=== PATIENT | female | born 1960 | race Caucasian/White ===

== ENCOUNTER 2020-03-22 13:22 | Outpatient (REF) | payer MEDICAID, SELFPAY ==
[2020-03-22 16:32] LABS: Albumin Level 4.7 g/dL (3.5-5.0); Calcium 9.7 mg/dL (8.4-10.2)
[2020-03-22 17:00] LABS: Free T4 (Free Thyroxine) 1.14 ng/dL (0.71-1.85); Vitamin D 25-OH Total 39.1 ng/mL (>30)
[2020-03-23 13:21] LABS: Calcium (PTHI) 9.7 mg/dL (8.6-10.4); PTHI 35 pg/mL (14-64)
[2020-03-23 22:21] LABS: Prot Elec - Albumin 4.5 g/dL (3.8-4.8); Prot Elec - Alpha1 0.3 g/dL (0.2-0.3); Prot Elec - Alpha2 0.8 g/dL (0.5-0.9); Prot Elec - Beta 1 0.4 g/dL (0.4-0.6); Prot Elec - Beta 2 0.4 g/dL (0.2-0.5); Prot Elec - Gamma 0.8 g/dL (0.8-1.7); Prot Elec - Total Protein 7.2 g/dL (6.1-8.1)
[2020-03-27 09:21] LABS: VITAMIN D (1,25 OH) D3 32 pg/mL; Vit D (1,25-Dihydroxy) Total 32 pg/mL (18-72); Vitamin D (1,25 OH) D2 <8 pg/mL
[2020-03-27 12:32] LABS: Alkaline Phosphatase Bone 21.3 mcg/L (5.6-29.0)
== END 2020-03-22 13:23 | disposition home or self-care (01) ==
LOC: HO.LAB 13:22
PROVIDERS: PCP Internal Medicine; Referring Provider Internal Medicine; Visit Provider Internal Medicine Endocrinology, Diabetes & Metabolism
DX: M81.0 Age-related osteoporosis without current pathological fracture (principal)
CPT/HCPCS: 36415; 82040; 82306; 82310; 82652; 83970; 84075; 84155; 84165; 84439; 84443; 99203; 99204

== ENCOUNTER 2020-03-24 08:00 | Outpatient (REF) | payer MEDICAID, SELFPAY ==
[2020-03-24 10:50] LABS: Total Volume 24 Hour Urine 2500 mL
[2020-03-24 11:26] LABS: Creatinine, 24Hr Urine 1.2 G/Day (1.0-2.0); Creatinine, mg/dL 49.62; Protein 24 Hr Urine < 175 mg/Day (<150); Protein mg/dL < 7 mg/dL
[2020-03-25 19:46] LABS: Calcium, 24 Hr Urine 50 mg/24 h; Calcium/Creatinine Ratio 38 mg/g creat (30-275); Creatinine 24Hr Urine 1.33 g/24 h (0.50-2.15)
[2020-03-27 11:32] LABS: PEU24-Alpha 1 Globulin 0; PEU24-Alpha 2 Globulin 0; PEU24-Beta Globulin 0; PEU24-Gamma Globulin 0
[2020-03-27 11:33] LABS: Creatinine, 24Hr Urine 1.35
[2020-03-27 11:35] LABS: Total Protein 24Hr Urine 100; Total Protein/Creat Ratio 24h 74
[2020-03-30 10:27] LABS: N-Telopeptide 35 (see note); NTXCreaRU 335 mg/dL (20-275)
== END 2020-03-24 08:01 | disposition home or self-care (01) ==
LOC: HO.LNP 08:00
PROVIDERS: Visit Provider Internal Medicine Endocrinology, Diabetes & Metabolism
DX: M81.0 Age-related osteoporosis without current pathological fracture (principal); Z79.899 Other long term (current) drug therapy
CPT/HCPCS: 82340; 82523; 82570; 84156; 84166

== ENCOUNTER → 2020-06-21 07:38 | Outpatient (BNVA) | payer MEDICAID, SELFPAY | PROVIDERS: PCP Internal Medicine; Visit Provider Internal Medicine Endocrinology, Diabetes & Metabolism ==

== ENCOUNTER 2020-07-07 07:30 | Outpatient (REF) | payer MEDICAID, SELFPAY ==
[2020-07-07 09:02] LABS: Alanine Aminotransferase 25 U/L (0-31); Albumin Level 4.5 g/dL (3.5-5.0); Alkaline Phosphatase 107 U/L (39-117); Anion Gap 15 (12-20); Aspartate Amino Transferase 19 U/L (5-31); Bilirubin Total 0.5 mg/dL (0.0-1.0); Blood Urea Nitrogen 11 mg/dL (9-16); Calcium 9.3 mg/dL (8.4-10.2); Carbon Dioxide 27 mmol/L (22-29); Chloride 103 mmol/L (96-108); Estimated Glomerular Filt Rate 57; Glucose Fasting 98 mg/dL (60-99); Potassium 3.5 mmol/L (3.3-5.1); Sodium 141 mmol/L (135-145)
[2020-07-07 09:24] LABS: Vitamin D 25-OH Total 35.6 ng/mL (>30)
[2020-07-12 14:47] LABS: N-Telopeptide 25 (see note); NTXCreaRU 414 mg/dL (20-275)
== END 2020-07-07 07:31 | disposition home or self-care (01) ==
LOC: HO.LAB 07:30
PROVIDERS: Visit Provider Internal Medicine Endocrinology, Diabetes & Metabolism
DX: M81.0 Age-related osteoporosis without current pathological fracture (principal)
CPT/HCPCS: 36415; 80053; 82306; 82523

== ENCOUNTER 2020-08-09 08:05 | Outpatient (REF) | payer MEDICAID, SELFPAY ==
--- NOTE | ~2020-08-09 | MM_ITS ---
EXAMINATION: MM SCREENING DIGITAL BREAST TOMOSYNTHESIS, BILATERAL CLINICAL INFORMATION: Screening. Asymptomatic. The lifetime risk of breast cancer based on the Tyrer-Cuzick Model is 6.2%. COMPARISON: Mammography: May 05, 2019 and studies dating back to December 16, 2007 TECHNIQUE: Digital breast tomosynthesis is performed in both the craniocaudal and mediolateral oblique views along with computer-aided detection (CAD). Synthesized 2D images are generated from the tomosynthesis. Bilateral exaggerated craniocaudal views performed. FINDINGS: There are scattered areas of fibroglandular density (ACR BI-RADS breast composition Category b). There are no significant masses, abnormal calcifications, or other abnormalities. MM/MM tomosynthesis screening BI IMPRESSION: There are no significant changes from prior study. ASSESSMENT: BI-RADS 1: Negative RECOMMENDATION: Routine annual mammography screening. This patient's information was entered into a reminder system with a target due date for their next mammogram.
== END 2020-08-09 08:06 | disposition home or self-care (01) ==
LOC: HO.MAMMO 08:05
PROVIDERS: PCP Internal Medicine; Visit Provider Internal Medicine
DX: Z12.31 Encounter for screening mammogram for malignant neoplasm of breast (principal)
CPT/HCPCS: 77063; 77067

== ENCOUNTER 2020-12-20 07:10 | Outpatient (REF) | payer MEDICAID, SELFPAY ==
[2020-12-20 09:13] LABS: Albumin Level 4.5 g/dL (3.5-5.0); Calcium 9.7 mg/dL (8.4-10.2)
[2020-12-20 09:46] LABS: Vitamin D 25-OH Total 35.5 ng/mL (>30)
[2020-12-28 05:47] LABS: N-Telopeptide 10 (see note); NTXCreaRU 96 mg/dL (20-275)
== END 2020-12-20 07:11 | disposition home or self-care (01) ==
LOC: HO.LAB 07:10
PROVIDERS: PCP Internal Medicine; Visit Provider Internal Medicine Endocrinology, Diabetes & Metabolism
DX: M81.0 Age-related osteoporosis without current pathological fracture (principal)
CPT/HCPCS: 36415; 82040; 82306; 82310; 82523; 99212

== ENCOUNTER 2021-02-12 15:18 | Outpatient (REF) | payer MEDICAID, SELFPAY ==
--- NOTE | ~2021-02-12 | XR_ITS ---
EXAMINATION: , AP pelvis CLINICAL INFORMATION: Pain COMPARISON: None available at the time of this dictation. TECHNIQUE: Single frontal view of the pelvis. FINDINGS: There is no evidence of acute fracture or dislocation. There are mild degenerative arthritic changes of the hip evident by sclerotic changes of the acetabular roof and narrowing of the joint space. Mild degenerative changes of the symphysis pubis. Mild degenerative changes of the SI joints. Adjacent pubic rami are intact. Surrounding soft tissues are unremarkable. There are pelvic phleboliths. XR/XR pelvis 1-2V IMPRESSION: Mild degenerative arthritis. .
== END 2021-02-12 15:19 | disposition home or self-care (01) ==
LOC: HO.XRAY 15:18
PROVIDERS: PCP Internal Medicine; Visit Provider Internal Medicine
DX: R10.2 Pelvic and perineal pain (principal)
CPT/HCPCS: 72170

== ENCOUNTER 2021-03-11 14:11 | Outpatient (REF) | payer MEDICAID, SELFPAY ==
--- NOTE | ~2021-03-11 | US_ITS ---
EXAMINATION: US PELVIS CLINICAL INFORMATION: Pain COMPARISON: None TECHNIQUE: Ultrasound of the pelvis is performed using both transabdominal and transvaginal transducers along with Doppler. Transvaginal imaging is performed due to inadequate visualization transabdominally. FINDINGS: The uterus has been removed. The ovaries are normal-appearing. The right ovary measures 1.7 x 1.1 x 1.7 cm and the left ovary measures 1.4 x 1 x 1.7 cm. There is no fluid in the pelvis. US/US pelvic and transvaginal IMPRESSION: Post hysterectomy. Normal-appearing ovaries. No fluid in the pelvis.
== END 2021-03-11 14:12 | disposition home or self-care (01) ==
LOC: HO.HMGCX 14:11
PROVIDERS: PCP Internal Medicine; Visit Provider Internal Medicine
DX: R10.2 Pelvic and perineal pain (principal)
CPT/HCPCS: 76830; 76856

== ENCOUNTER 2021-08-17 08:55 | Outpatient (REF) | payer MEDICAID, SELFPAY ==
--- NOTE | ~2021-08-17 | MM_ITS ---
EXAMINATION: MM SCREENING DIGITAL BREAST TOMOSYNTHESIS, BILATERAL CLINICAL INFORMATION: Screening. Asymptomatic. The lifetime risk of breast cancer based on the Tyrer-Cuzick Model is 4.7%. COMPARISON: Mammography: August 09, 2020 and studies dating back to March 16, 2010 TECHNIQUE: Digital breast tomosynthesis is performed in both the craniocaudal and mediolateral oblique views along with computer-aided detection (CAD). Synthesized 2D images are generated from the tomosynthesis. FINDINGS: There are scattered areas of fibroglandular density (ACR BI-RADS breast composition Category b). There are no significant masses, abnormal calcifications, or other abnormalities. MM/MM tomosynthesis screening BI IMPRESSION: There are no significant changes from prior study. ASSESSMENT: BI-RADS 1: Negative RECOMMENDATION: Routine annual mammography screening. This patient's information was entered into a reminder system with a target due date for their next mammogram.
== END 2021-08-17 08:56 | disposition home or self-care (01) ==
LOC: HO.MAMMO 08:55
PROVIDERS: PCP Internal Medicine; Visit Provider Internal Medicine
DX: Z12.31 Encounter for screening mammogram for malignant neoplasm of breast (principal)
CPT/HCPCS: 77063; 77067

== ENCOUNTER 2021-12-19 10:11 | Outpatient (REF) | payer MEDICAID, SELFPAY ==
--- NOTE | ~2021-12-19 | MM_ITS ---
EXAMINATION: BONE DENSITOMETRY CLINICAL INDICATION: Age-related osteoporosis without current pathological fracture. COMPARISON: Baseline BD dated 12/08/2019. TECHNIQUE: Using a [employer] DXA System (software version: 13.1) manufactured by [employer], dual-energy x-ray absorptiometry was performed of the lumbar spine and left hip. The images are of good technical quality. Summary results are attached. FINDINGS: AP SPINE L1-L4: Current: BMD 0.947 g/cm2, Z-score -0.8, T-score -1.9, osteopenia, 9.7% increase from baseline (<5% change is not significant). Baseline: BMD 0.863 g/cm2. LEFT FEMUR, NECK: Current: BMD 0.678 g/cm2, Z-score -1.4, T-score -2.6, osteoporosis. Baseline: BMD 0.781 g/cm2. LEFT FEMUR, TOTAL: Current: BMD 0.702 g/cm2, Z-score -1.5, T-score -2.4, osteopenia, 14.0% decrease from baseline (<5% change is not significant). Baseline: BMD 0.816 g/cm2. IDENTIFIED RISK FACTORS: Osteoporosis. Hysterectomy. Menopause. HISTORY OF FRACTURE: None listed. MEDICATIONS: Calcium supplement and/or multivitamin. Vitamin D. Bisphosphonates. MM/XR DEXA axial skeleton IMPRESSION: 1. DIAGNOSIS: Osteoporosis based on the lowest T-score value of -2.6 in the femoral neck applying World Health Organization criteria. 2. 10-YEAR FRACTURE RISK PREDICTION, FRAX: Major osteoporotic fracture (clinical spine, forearm, hip or shoulder) 7.1%. Hip fracture 1.4%. 3. Treatment Recommendations: NOF guidelines recommend consideration for treatment in postmenopausal women and men age 50 and older presenting with the following: -A hip or vertebral (clinical or morphometric) fracture. -T-score less than or equal to -2.5 at the femoral neck or spine after appropriate evaluation to exclude secondary causes. -Low bone mass at the hip or spine and a 10-year fracture probability by FRAX of greater than or equal to 3% for hip fracture or greater than or equal to 20% for major osteoporotic fracture based on the [place] adapted WHO algorithm. 4. Other Recommendations: All treatment decisions require clinical judgment and consideration of individual patient factors, including patient preferences, comorbidities, previous drug use, risk factors not captured in the FRAX model (e.g. frailty, falls, vitamin D deficiency, increased bone turnover, interval significant decline in bone density) and possible under or overestimation of fracture risk by FRAX. Additional medical evaluation for secondary cause of low bone mineral density may be appropriate. FUTURE SCAN RECOMMENDATION: People with diagnosed cases of osteoporosis or at high risk for fracture should have regular bone mineral density tests. For patients eligible for Medicare, routine testing is allowed once every 2 years. The testing frequency can be increased to one year for patients who have rapidly progressing disease, those who are receiving or discontinuing medical therapy to restore bone mass, or have additional risk factors.
== END 2021-12-19 10:12 | disposition home or self-care (01) ==
LOC: HO.MAMMO 10:11
PROVIDERS: PCP Internal Medicine; Visit Provider Internal Medicine Endocrinology, Diabetes & Metabolism
DX: Z13.820 Encounter for screening for osteoporosis (principal); M81.0 Age-related osteoporosis without current pathological fracture; Z78.0 Asymptomatic menopausal state
CPT/HCPCS: 77080

== ENCOUNTER → 2021-12-24 07:37 | Outpatient (BNVA) | payer MEDICAID, SELFPAY | PROVIDERS: PCP Internal Medicine; Visit Provider Internal Medicine Endocrinology, Diabetes & Metabolism | DX: M81.0 Age-related osteoporosis without current pathological fracture (principal) | CPT/HCPCS: 99212 ==

== ENCOUNTER 2022-06-14 07:45 | Outpatient (REF) | payer MEDICAID, SELFPAY ==
[2022-06-20 04:54] LABS: N-Telopeptide 39 (see note); NTXCreaRU 218 mg/dL (20-275)
== END 2022-06-14 07:46 | disposition home or self-care (01) ==
LOC: HO.HMGCLDS 07:45
PROVIDERS: PCP Internal Medicine; Visit Provider Internal Medicine Endocrinology, Diabetes & Metabolism
DX: M81.0 Age-related osteoporosis without current pathological fracture (principal)
CPT/HCPCS: 82523

== ENCOUNTER → 2022-06-26 07:45 | Outpatient (BNVA) | payer MEDICAID, SELFPAY | PROVIDERS: PCP Internal Medicine; Visit Provider Internal Medicine Endocrinology, Diabetes & Metabolism | DX: M81.0 Age-related osteoporosis without current pathological fracture (principal) | CPT/HCPCS: 99212 ==

== ENCOUNTER 2022-08-30 08:53 | Outpatient (REF) | payer MEDICAID, SELFPAY ==
--- NOTE | ~2022-08-30 | MM_ITS ---
EXAMINATION: MM SCREENING DIGITAL BREAST TOMOSYNTHESIS, BILATERAL CLINICAL INFORMATION: Screening. Asymptomatic. The lifetime risk of breast cancer based on the Tyrer-Cuzick Model is 4%. COMPARISON: Mammography: 08/17/2021, 08/09/2020, 05/05/2019 TECHNIQUE: Digital breast tomosynthesis is performed in both the craniocaudal and mediolateral oblique views along with computer-aided detection (CAD). Synthesized 2D images are generated from the tomosynthesis. FINDINGS: There are scattered areas of fibroglandular density (ACR BI-RADS breast composition Category b). There are no significant masses, abnormal calcifications, or other abnormalities. Parenchymal pattern is similar to prior studies. There is no developing density or architectural abnormality. The axilla and skin contours are unremarkable. No significant changes. MM/MM tomosynthesis screening BI IMPRESSION: No mammographic evidence of malignancy. ASSESSMENT: BI-RADS 1: Negative RECOMMENDATION: Routine annual mammography screening. This patient's information was entered into a reminder system with a target due date for their next mammogram.
== END 2022-08-30 08:54 | disposition home or self-care (01) ==
LOC: HO.MAMMO 08:53
PROVIDERS: Visit Provider Internal Medicine
DX: Z12.31 Encounter for screening mammogram for malignant neoplasm of breast (principal)
CPT/HCPCS: 77063; 77067

== ENCOUNTER 2022-10-09 11:50 | Outpatient (REF) | payer MEDICAID, SELFPAY ==
--- NOTE | ~2022-10-09 | XR_ITS ---
EXAMINATION: XR KNEE, LEFT CLINICAL INFORMATION: Pain. COMPARISON: None available. TECHNIQUE: Four views of the left knee. FINDINGS: No acute compression deformity or subluxation. Mild joint space narrowing of the medial compartment. No erosions or chondrocalcinosis. No significant soft tissue abnormality. XR/XR knee LT 3V IMPRESSION: No acute fracture or malalignment. Mild degenerative osteoarthritis of the medial compartment.
== END 2022-10-09 11:51 | disposition home or self-care (01) ==
LOC: HO.HHCX 11:50
PROVIDERS: Visit Provider Family Medicine
DX: M25.562 Pain in left knee (principal)
CPT/HCPCS: 73562

== ENCOUNTER 2022-11-20 06:24 | Outpatient (REF) | payer MEDICAID, SELFPAY ==
--- NOTE | ~2022-11-20 | XR_ITS ---
EXAMINATION: XR KNEE AP STANDING CLINICAL INFORMATION: Right knee pain. COMPARISON: Left knee radiographs dated 10/09/2022. TECHNIQUE: AP bilateral standing view of the knees was obtained. FINDINGS: Mild medial compartment joint space narrowing with tiny marginal osteophytes at the right and left knees. No osseous erosion. No fracture or dislocation. No abnormal soft tissue calcification. XR/XR knee standing BI IMPRESSION: Mild medial compartment osteoarthritis at the right and left knees.
== END 2022-11-20 06:25 | disposition home or self-care (01) ==
LOC: HO.HOSX 06:24
PROVIDERS: Visit Provider Physician Assistant
DX: M17.12 Unilateral primary osteoarthritis, left knee (principal); M25.561 Pain in right knee
CPT/HCPCS: 73565; 99202

== ENCOUNTER 2023-01-16 08:00 | Outpatient (RCR) | payer MEDICAID, SELFPAY ==
--- NOTE | 2022-12-12 13:37 | MHC.PT.EP ---
[facility] [place] Office [place] Office [place] Office [address] Melo Tobin [address] [phone] F: [phone] F: [phone] F: [phone] F: [phone] Physical Therapy Plan of Care Date of Evaluation: Date of Surgery: N/A Diagnosis: left knee OA (RL) Assessment: pt is a 62 y/o female presenting to physical therapy w/ referring diagnosis of left knee OA. Impairments include pain, decreased range of motion, decreased strength, impaired functional mobility, impaired postural awareness, and altered ambulation mechanics. pt is a fair candidate for skilled PT due to age, potential remediation of impairments, typical disease/condition progression and prognosis, comorbidities, and motivation. pt would benefit from skilled PT intervention to provide a tailored strengthening and stretching exercise program, functional training, gait training, postural re-training, neuromuscular re-education, modalities as needed for pain, equipment safety demonstration. Frequency and Duration: The patient will be seen 2x/wk for 4 wks Short Term Goals: pt will be I w/ HEP to promote self-management of condition. pt will improve L knee extension to 0 degree to normalize gait pattern on even ground. Group Home Goals: pt will ascend/descend 3 stairs reciprocal pattern using LRAD to promote ease in access to primary living spaces. pt will report a statistically significant improvement in self-reported outcome measure, LEFI, to promote return to PLOF. Treatment Plan: Modalities to reduce pain, spasms and effusion. Manual therapy to restore motion and function. Therapeutic exercise to improve strength and flexibility. Neuromuscular re-education for posture and balance. Therapeutic activities to return to functional activities of daily living. Electronically signed by: Kristi Wolf PT, DPT Please sign and return to therapist. Thank you for your referral.
--- NOTE | 2023-01-16 09:12 | MHC.PT.DC ---
[facility] [place] Office [place] Office [place] Office [address] Melo Tobin [address] [facility] [phone] F: [phone] F: [phone] F: [phone] F: [phone] Physical Therapy Discharge Report Diagnosis: left knee OA (RL) Date of Surgery: N/A Date of Evaluation: 12/12/22 Date of Discharge: 01/16/23 Treatments to Date: 8 Cancellations to Date: 0 No Shows to Date: 0 Discharge Status: Improved Function Independent with HEP Discharge Summary: The patient reported she has noticed an improvement in her knee pain as well as her tolerance for functional tasks and mobility including ambulation. She is independent with her home exercise program and is discharged from this physical therapy plan of care at this time. Electronically signed by: Kristi Wolf PT, DPT Please sign and return to therapist. Thank you for your referral.
== END 2023-01-16 09:12 | disposition home or self-care (01) ==
LOC: HO.PT 08:00
PROVIDERS: PCP Registered Nurse; Visit Provider Physician Assistant
DX: M17.12 Unilateral primary osteoarthritis, left knee (principal)
CPT/HCPCS: 97110; 97140; 97162

== ENCOUNTER 2023-02-19 14:31 | Outpatient (REF) | payer MEDICAID, SELFPAY ==
[2023-02-19 16:12] LABS: MANUAL DIFF FLAG NO
[2023-02-19 16:15] LABS: Basophils Percent Auto 0.4 % (0-2); Eosinophils Absolute Auto 0.1 X10*3/uL (0.0-0.4); Eosinophils Percent Auto 2.3 % (0-4); Hematocrit 36.5 % (37.0-47.0); Imm Gran Abs Auto 0.01 X10*3/uL (0.00-0.03); Imm Gran Pct Auto 0.2 % (0.0-0.4); Lymphocytes Absolute Auto 1.9 X10*3/uL (1.2-4.9); Lymphocytes Percent Auto 33.9 % (20-40); Mean Corpuscular HGB Conc 32.9 g/dl (31.0-35.0); Mean Corpuscular Hemoglobin 26.8 pg (27.0-33.0); Mean Corpuscular Volume 81.5 fL (80.0-98.0); Mean Platelet Volume 10.8 fL (9.4-12.3); Monocytes Absolute Auto 0.5 X10*3/uL (0.1-1.2); Monocytes Percent Auto 9.4 % (2-11); Neutrophils Percent Auto 53.8 % (45-73); Platelet Count 282 X10*3/uL (160-400); Red Blood Count 4.48 X10*6/uL (4.20-5.50); Red Cell Distribution Width 13.8 % (11.0-16.0); White Blood Count 5.6 X10*3/uL (4.8-10.8)
[2023-02-19 17:09] LABS: Anion Gap 13 (12-20); Blood Urea Nitrogen 9 mg/dL (9-16); Calcium 9.9 mg/dL (8.4-10.2); Carbon Dioxide 30 mmol/L (22-29); Chloride 102 mmol/L (96-108); Estimated Glomerular Filt Rate > 60; Glucose Random 103 mg/dL (60-115); Potassium 2.9 mmol/L (3.3-5.1); Sodium 142 mmol/L (135-145)
[2023-02-19 17:27] LABS: TSH reflex Free T4 1.17 uIU/mL (0.32-4.0); Vitamin D 25-OH Total 44.8 ng/mL (>30)
== END 2023-02-19 14:32 | disposition home or self-care (01) ==
LOC: HO.HHCL 14:31
PROVIDERS: Visit Provider Emergency Medicine
DX: R53.83 Other fatigue (principal)
CPT/HCPCS: 36415; 80048; 82306; 84443; 85025

== ENCOUNTER 2023-02-25 14:32 | Outpatient (REF) | payer MEDICAID, SELFPAY ==
[2023-02-25 16:08] LABS: Potassium 3.3 mmol/L (3.3-5.1)
== END 2023-02-25 14:33 | disposition home or self-care (01) ==
LOC: HO.HHCL 14:32
PROVIDERS: Visit Provider Emergency Medicine
DX: E87.6 Hypokalemia (principal)
CPT/HCPCS: 36415; 84132

== ENCOUNTER 2023-03-18 07:55 | Outpatient (AMB) | payer MEDICAID, SELFPAY ==
--- NOTE | 2023-03-18 08:23 | MHC.OFFVIS ---
Intake Vital Signs 03/18/23 08:24 Height 5 ft 3.7 in Weight 172 lb BMI 29.8 Intake Visit Reasons: OV- acute pain of left knee Intake Note: Juliet a 62 year old female presents today for a follow up of left knee pain. Patient reports that she continues to have pain that gets worse with prolong walking and stair use. Finds relief with lidocaine patches. States pain starts in her hip and goes down to her knee. She attended PT and given home exercises however this increased her pain causing her to go to the ED where lidocaine patches were prescribed. She is requesting to have an MRI. Allergies alendronate sodium Allergy (Intermediate, Verified 03/18/23 08:31) rash, Itchiness Sulfa (Sulfonamide Antibiotics) [Sulfa (Sulfonamides)] Allergy (Mild, Verified 03/18/23 08:31) AVOID cortisone Allergy (Unknown, Verified 03/18/23 08:31) eye problems Medication List - Last Reconciled 03/18/23 by Erica Roe PA-C acetaminophen (Tylenol Extra Strength) 1,000 mg PO Q6H PRN amlodipine 2.5 mg PO DAILY aspirin 81 mg PO DAILY atorvastatin 20 mg PO DAILY baclofen 10 mg PO TID blood pressure test kit-large As directed calcium carbonate-vitamin D3 600 mg-10 mcg (400 unit) 1 tab PO BID duloxetine 20 mg PO DAILY lisinopril 20 mg PO DAILY lisinopril-hydrochlorothiazide 20-25 mg 1 tab PO DAILY melatonin 3 mg PO BEDTIME PRN metoprolol tartrate 50 mg PO BID multivitamin 1 tab PO DAILY pantoprazole 40 mg PO BID polyvinyl alcohol 1.4% (Artificial Tears (polyvinyl alcohol)) 1 drp ophthalmic (eye) TID-QID PRN HPI OV- acute pain of left knee HPI Details 62-year-old female who returns 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 She continues to have pain in her knee which radiates up to her hip. Her pain is aggravated with prolonged ambulation and stair use. She also c/o intense sharp pain in her knee with kneeling. She denies any knee locking or buckling. She had undergone physical therapy and home exercises which worsened her pain and causing her to see ED where she was prescribed which provided her relief. FOR[facility]LY [facility] Medical History Anxiety Carpal tunnel syndrome Depression G6PD deficiency Hypertension Insomnia Osteoarthritis Osteoporosis Surgical History Hx of tubal ligation Hx of hysterectomy Family History Father Heart attack Mother Cancer Social History Household Members: Children Household Members Other:: daughter and family Alcohol intake: never Patient Tobacco Use Status: Never used Tobacco Review of Systems Const All systems reviewed & are unremarkable except as noted in HPI and below Physical Exam Vital Signs: BMI result Body Mass Index 29.8 Const General: cooperative, healthy appearing, comfortable, no acute distress, well developed and alert Orientation/consciousness: patient oriented x3 HEENT Head: Yes normal to inspection, Yes normocephalic and Yes atraumatic Eyes General: appearance normal, both eyes and all related structures Resp Effort & Inspection: normal respiratory effort and able to speak in complete sentences Cardio Rate: regular rate Peripheral pulses: Peripheral pulses 2+ throughout GI Palpation (GI): Soft to palpation Skin Lesions: no lesions Rashes: no rashes Neuro General: patient oriented x3 Extrem Other: Left knee skin intact, no erythema or joint effusion. Tenderness along the medial joint line. Full ROM with crepitus. Positive Antoni?s. No ligamentous laxity. NVI. Assessment & Plan Assessment & Plan (1) Osteoarthritis of left knee: Code(s): M17.12 - Unilateral primary osteoarthritis, left knee Qualifiers: Osteoarthritis type: primary Qualified Code(s): M17.12 - Unilateral primary osteoarthritis, left knee Plan We discussed options which include gel injection vs an MRI. She does not feel as though her pain has changed at all and she is not limited with any activities. She continues to use lidocaine patches with good relief. Therefore, we decided to not proceed with an MRI and will hold off on gel till her symptoms has worsened, at that point she can contact the office. Patient Instructions: Scribed for Erica Roe PA-C, by Faizan Keene bilingual medical assistant, on 03/18/2023 at 8:45 AM Erica BATRES PA-C, have personally reviewed and agree with the information entered by the scribe. Coding Level of Care Code Est Pt Level 3 (74700) Diagnoses Primary osteoarthritis of left knee M17.12 Osteoarthritis type: primary
[2023-03-18 08:24] VITALS: BMI 29.8
== END 2023-03-18 08:53 | disposition home or self-care (01) ==
PROVIDERS: PCP Registered Nurse; Visit Provider Physician Assistant
DX: M17.12 Unilateral primary osteoarthritis, left knee (principal)
CPT/HCPCS: 99213

== ENCOUNTER → 2023-03-18 07:55 | Outpatient (BNVA) | payer MEDICAID, SELFPAY | PROVIDERS: PCP Registered Nurse; Visit Provider Physician Assistant | DX: M17.12 Unilateral primary osteoarthritis, left knee (principal) | CPT/HCPCS: 99212 ==

== ENCOUNTER 2023-04-25 06:35 | Outpatient (REF) | payer MEDICAID, SELFPAY ==
[2023-04-25 11:04] LABS: Hematocrit 36.8 % (37.0-47.0); Hemoglobin 11.8 g/dl (12.0-16.0); Mean Corpuscular HGB Conc 32.1 g/dl (31.0-35.0); Mean Corpuscular Hemoglobin 26.9 pg (27.0-33.0); Mean Platelet Volume 11.2 fL (9.4-12.3); Platelet Count 226 X10*3/uL (160-400); Red Blood Count 4.38 X10*6/uL (4.20-5.50); Red Cell Distribution Width 13.9 % (11.0-16.0); White Blood Count 4.5 X10*3/uL (4.8-10.8)
[2023-04-25 11:28] LABS: Estimated Average Glucose 105 mg/dL; Hemoglobin A1c % 5.3 % (<6.0)
[2023-04-25 11:36] LABS: Alanine Aminotransferase 20 U/L (0-31); Albumin Level 4.4 g/dL (3.5-5.0); Alkaline Phosphatase 112 U/L (39-117); Anion Gap 14 (12-20); Aspartate Amino Transferase 20 U/L (5-31); Bilirubin Total 0.6 mg/dL (0.0-1.0); Blood Urea Nitrogen 13 mg/dL (9-16); Calcium 9.5 mg/dL (8.4-10.2); Carbon Dioxide 25 mmol/L (22-29); Chloride 106 mmol/L (96-108); Cholesterol 153 mg/dL (<200); Estimated Glomerular Filt Rate 57; Glucose Random 89 mg/dL (60-115); HDL Cholesterol 48 mg/dL (>40); LDL Cholesterol Calculated 84 mg/dL (<100); Potassium 3.6 mmol/L (3.3-5.1); Sodium 141 mmol/L (135-145); Total Protein 7.4 g/dL (6.5-8.0); Triglycerides 106 mg/dL (<150)
[2023-04-25 11:51] LABS: TSH reflex Free T4 2.62 uIU/mL (0.32-4.0)
[2023-04-25 12:34] LABS: CT PCR NOT DETECTED (Not Detect.); NG PCR NOT DETECTED (Not Detect.)
[2023-04-27 08:16] LABS: Syphilis Screen Nonreactive (Nonreactive)
[2023-04-27 10:26] LABS: Iron 70 mcg/dL (30-160); Percent Iron Saturation 26 % (15-50); Total Iron Binding Capacity 273 mcg/dL (228-428); Unsaturated Iron Binding 203 ug/dL
[2023-04-27 10:39] LABS: Ferritin 133 ng/mL (10-250)
[2023-04-28 11:43] LABS: VITAMIN D (1,25 OH) D3 35 pg/mL; Vit D (1,25-Dihydroxy) Total 35 pg/mL (18-72); Vitamin D (1,25 OH) D2 <8 pg/mL
== END 2023-04-25 06:36 | disposition home or self-care (01) ==
LOC: HO.HMGCLDS 06:35
PROVIDERS: PCP Student in an Organized Health Care Education/Training Program; Visit Provider Student in an Organized Health Care Education/Training Program
DX: Z00.00 Encounter for general adult medical examination without abnormal findings (principal); Z13.0 Encounter for screening for diseases of the blood and blood-forming organs and certain disorders involving the immune mechanism
CPT/HCPCS: 0353U; 80053; 80061; 82652; 82728; 83036; 83540; 84443; 85027; 86780

== ENCOUNTER 2023-05-27 11:03 | Outpatient (REF) | payer MEDICAID, SELFPAY ==
[2023-05-27 13:26] LABS: MANUAL DIFF FLAG NO
[2023-05-27 13:35] LABS: Basophils Percent Auto 0.4 % (0-2); Eosinophils Absolute Auto 0.1 X10*3/uL (0.0-0.4); Eosinophils Percent Auto 1.9 % (0-4); Hematocrit 37.2 % (37.0-47.0); Hemoglobin 11.9 g/dl (12.0-16.0); Imm Gran Abs Auto 0.02 X10*3/uL (0.00-0.03); Imm Gran Pct Auto 0.4 % (0.0-0.4); Lymphocytes Absolute Auto 1.9 X10*3/uL (1.2-4.9); Lymphocytes Percent Auto 36.4 % (20-40); Mean Corpuscular Hemoglobin 26.5 pg (27.0-33.0); Mean Corpuscular Volume 82.9 fL (80.0-98.0); Mean Platelet Volume 11.2 fL (9.4-12.3); Monocytes Absolute Auto 0.5 X10*3/uL (0.1-1.2); Monocytes Percent Auto 8.5 % (2-11); Neutrophils Absolute Auto 2.8 x10*3/uL (2.0-8.3); Neutrophils Percent Auto 52.4 % (45-73); Platelet Count 257 X10*3/uL (160-400); Red Blood Count 4.49 X10*6/uL (4.20-5.50); Red Cell Distribution Width 13.8 % (11.0-16.0); White Blood Count 5.3 X10*3/uL (4.8-10.8)
[2023-05-27 16:13] LABS: Alanine Aminotransferase 20 U/L (0-31); Albumin Level 4.4 g/dL (3.5-5.0); Alkaline Phosphatase 117 U/L (39-117); Anion Gap 9 (12-20); Aspartate Amino Transferase 17 U/L (5-31); Bilirubin Total 0.4 mg/dL (0.0-1.0); Blood Urea Nitrogen 12 mg/dL (9-16); Calcium 9.7 mg/dL (8.4-10.2); Carbon Dioxide 29 mmol/L (22-29); Chloride 108 mmol/L (96-108); Estimated Glomerular Filt Rate > 60; Glucose Random 95 mg/dL (60-115); Potassium 3.8 mmol/L (3.3-5.1); Sodium 142 mmol/L (135-145); Total Protein 7.2 g/dL (6.5-8.0)
[2023-05-27 18:46] LABS: Folate 10.1 ng/mL (> or = 4.0)
[2023-05-28 14:27] LABS: Vitamin B12 312 pg/mL (200-900)
== END 2023-05-27 11:04 | disposition home or self-care (01) ==
LOC: HO.HHCL 11:03
PROVIDERS: Visit Provider Student in an Organized Health Care Education/Training Program
DX: E87.6 Hypokalemia (principal); D50.9 Iron deficiency anemia, unspecified
CPT/HCPCS: 36415; 80053; 82607; 82746; 85025

== ENCOUNTER 2023-06-24 07:31 | Outpatient (REF) | payer MEDICAID, SELFPAY ==
[2023-07-02 08:44] LABS: N-Telopeptide 67 (see note); NTXCreaRU 250 mg/dL (20-275)
== END 2023-06-24 07:32 | disposition home or self-care (01) ==
LOC: HO.10HDLNP 07:31
PROVIDERS: Visit Provider Internal Medicine Endocrinology, Diabetes & Metabolism
DX: M81.0 Age-related osteoporosis without current pathological fracture (principal)
CPT/HCPCS: 82523

== ENCOUNTER 2023-06-24 07:51 | Outpatient (REF) | payer MEDICAID, SELFPAY ==
--- NOTE | ~2023-06-24 | US_ITS ---
EXAMINATION: US ABDOMEN LIMITED CLINICAL INFORMATION: Liver cyst. COMPARISON: None available. TECHNIQUE: Real-time imaging of the right upper quadrant abdominal viscera. FINDINGS: PANCREAS: Normal. LIVER: The liver is normal in size. The liver contour is normal. Parenchymal echogenicity is normal. Simple appearing cyst in the left lobe measuring 1.1 x 0.8 x 0.8 cm. There is no intrahepatic biliary duct dilatation seen. GALLBLADDER: Normal. The gallbladder is physiologically distended without evidence of stones, sludge, polyps, wall thickening or pericholecystic fluid. COMMON BILE DUCT: Normal in caliber measuring 0.4 cm in diameter. RIGHT KIDNEY: No hydronephrosis. No renal calculi or focal parenchymal lesions. The kidney measures 10.7 cm in maximum dimension. Mild pelvic fullness. FREE FLUID: None. US/US abdomen limited IMPRESSION: 1. Simple appearing 1.1 cm cyst in the left lobe of the liver. 2. Mild right renal pelvic fullness.
== END 2023-06-24 07:52 | disposition home or self-care (01) ==
LOC: HO.US 07:51
PROVIDERS: PCP Student in an Organized Health Care Education/Training Program; Visit Provider Student in an Organized Health Care Education/Training Program
DX: K76.89 Other specified diseases of liver (principal)
CPT/HCPCS: 76705

== ENCOUNTER 2023-06-30 07:44 | Outpatient (AMB) | payer MEDICAID, SELFPAY ==
--- NOTE | 2023-06-30 07:54 | MHC.OFFVIS ---
Intake Vital Signs 06/30/23 07:58 Height 5 ft 3.7 in Weight 177 lb 14.609 oz BMI 30.8 BP 144/70 H Blood Pressure Location Rt brachial Position Sitting Pulse 70 Pulse Source Pulse Oximeter Intake Visit Reasons: f/u osteoporosis-confirmed Intake Note: Patient presents for Osteoporosis follow up. 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 Language: Side Hemmer Name: Juliet, Medical Staff CMI Information Interpreted: non-clinical & clinical Accompanied by: Self / Same As Patient Allergies alendronate sodium Allergy (Intermediate, Verified 06/30/23 08:01) rash, Itchiness Sulfa (Sulfonamide Antibiotics) [Sulfa (Sulfonamides)] Allergy (Mild, Verified 06/30/23 08:01) AVOID cortisone Allergy (Unknown, Verified 06/30/23 08:01) eye problems Medication List - Last Reconciled 06/30/23 by David Castorena MD acetaminophen (Tylenol Extra Strength) 1,000 mg PO Q6H PRN amlodipine 2.5 mg PO DAILY aspirin 81 mg PO DAILY atorvastatin 20 mg PO DAILY baclofen 10 mg PO TID blood pressure test kit-large As directed calcium carbonate-vitamin D3 600 mg-10 mcg (400 unit) 1 tab PO BID duloxetine 20 mg PO DAILY duloxetine 30 mg PO DAILY lisinopril 40 mg PO DAILY lisinopril-hydrochlorothiazide 20-25 mg 1 tab PO DAILY melatonin 3 mg PO BEDTIME PRN melatonin 3 mg PO BEDTIME PRN metoprolol tartrate 50 mg PO BID multivitamin 1 tab PO DAILY pantoprazole 40 mg PO BID polyvinyl alcohol 1.4% (Artificial Tears (polyvinyl alcohol)) 1 drp ophthalmic (eye) TID-QID PRN potassium chloride ER 10 mEq PO DAILY HPI HPI Comments History of Present Illness Details 63-year-old female today for follow-up visit, she was last seen on 12/20/2020 for osteoporosis evaluation She has been on risedronate since March 2020. She is tolerating the medication well she did not have any problems and she has a good method of administration. All prior workup for secondary osteoporosis is normal. She is in calcium carbonate 500 mg twice a day plus vitamin-D. She denies prior fragility fractures, denies GERD, she has family history of osteoporosis in her mother and her sister but no fractures. She denies personal or family history of nephrolithiasis, denies steroids used, never smoker, denies anti seizures medications, she has never been on PPIs, SSRI or lithium. She has negative History of head or neck irradiation. Bisphosphonates use: Alendroante 1 tablet. Had allergic reaction. Calcium intake: she is on calcium 600 mg +400 international units of vitamin-D twice a day. Vitamin D: With calcium Herbal medications. none. Complete secondary workup has been 12/08/2019 AP SPINE L1-L4: BMD 0.863 g/cm2, Z-score -1.8, T-score -2.6, osteoporosis. LEFT FEMUR, NECK: BMD 0.781 g/cm2, Z-score -0.8, T-score -1.8, osteopenia. LEFT FEMUR, TOTAL: BMD 0.816 g/cm2, Z-score -0.8, T-score -1.5, osteopenia. 2021 FINDINGS: AP SPINE L1-L4: Current: BMD 0.947 g/cm2, Z-score -0.8, T-score -1.9, osteopenia, 9.7% increase from baseline (<5% change is not significant). Baseline: BMD 0.863 g/cm2. LEFT FEMUR, NECK: Current: BMD 0.678 g/cm2, Z-score -1.4, T-score -2.6, osteoporosis. Baseline: BMD 0.781 g/cm2. LEFT FEMUR, TOTAL: Current: BMD 0.702 g/cm2, Z-score -1.5, T-score -2.4, osteopenia, 14.0% decrease from baseline (<5% change is not significant). Baseline: BMD 0.816 g/cm2. Laboratory Tests 03/22/20 03/22/20 07/07/20 15:35 15:35 08:01 Creatinine 0.99 Estimated GFR 57 Calcium 9.3 Alkaline Phosphata se 107 Alk Phos Bone Spec ific 21.3 Albumin (PEP) 4.5 Albumin 4.5 N-Telopeptide X-li nked 07/07/20 08:01 Creatinine Estimated GFR Calcium Alkaline Phosphata se Alk Phos Bone Spec ific Albumin (PEP) Albumin N-Telopeptide X-li nked 25 Laboratory Tests 04/19/18 06/06/19 06/06/19 07:45 09:50 09:50 Hgb 12.9 Hct 38.1 Creatinine 0.98 Est GFR (Non-Af Am er) 58 Calcium 10.1 Alkaline Phosphata se 83 Albumin 4.4 25-OH Vitamin D To keyona 37.0 TSH 3rd Generation 2.02 Laboratory Tests 04/19/18 06/06/19 03/22/20 07:45 09:50 15:35 Creatinine 0.98 Est GFR (Non-Af Am er) 58 Calcium 9.7 Alkaline Phosphata se 83 Alk Phos Bone Spec ific Total Protein (PEP ) Albumin 4.7 Albumin (PEP) Gtljo-8-Fxmcfkolv Vldpq-7-Vzezrejyf Qaex-7-Tuqeealq Gbpn-9-Wqtifthn Gamma Globulins PEP Interpretation N-Telopeptide X-li nked 25-OH Vitamin D To keyona 39.1 1,25 Dihydroxy Vit D 1,25 Dihydroxy Vit D2 1,25 Dihydroxy Vit D3 TSH 1.10 Free T4 1.14 PTH Intact Calcium (PTH Intac t) Ur 24 Hour Volume Urine Creatinine Ur Creatinine mg/d L Protein/Creat Rati o 24h Ur Calcium 24 Hr Calcium/Creat 24 H r 03/22/20 03/22/20 03/24/20 15:35 15:35 07:30 Creatinine Est GFR (Non-Af Am er) Calcium Alkaline Phosphata se Alk Phos Bone Spec ific 21.3 Total Protein (PEP ) 7.2 Albumin Albumin (PEP) 4.5 Xcsxp-3-Zwevwzpmn 0.3 Pvofn-9-Upigejvdi 0.8 Wgnf-6-Kalsjjxd 0.4 Eros-8-Pnutizpd 0.4 Gamma Globulins 0.8 PEP Interpretation SEE NOTE N-Telopeptide X-li nked 25-OH Vitamin D To keyona 1,25 Dihydroxy Vit D 32 1,25 Dihydroxy Vit D2 <8 1,25 Dihydroxy Vit D3 32 TSH Free T4 PTH Intact 35 Calcium (PTH Intac t) 9.7 Ur 24 Hour Volume Urine Creatinine Ur Creatinine mg/d L Protein/Creat Rati o 24h 74 Ur Calcium 24 Hr Calcium/Creat 24 H r 03/24/20 03/24/20 03/24/20 07:30 07:30 07:30 Creatinine Est GFR (Non-Af Am er) Calcium Alkaline Phosphata se Alk Phos Bone Spec ific Total Protein (PEP ) Albumin Albumin (PEP) Kzcsh-4-Ceqgyllhp Ikpdr-6-Oxnhnyppe Gjpf-5-Zwlgavvn Qwju-2-Comoxeby Gamma Globulins PEP Interpretation N-Telopeptide X-li nked 35 25-OH Vitamin D To keyona 1,25 Dihydroxy Vit D 1,25 Dihydroxy Vit D2 1,25 Dihydroxy Vit D3 TSH Free T4 PTH Intact Calcium (PTH Intac t) Ur 24 Hour Volume 2500 Urine Creatinine 335 H Ur Creatinine mg/d L 49.62 Protein/Creat Rati o 24h Ur Calcium 24 Hr 50 Calcium/Creat 24 H r 38 off risindronate . On calciumand vitamin D PFSH Medical History Anxiety Carpal tunnel syndrome Depression G6PD deficiency Hypertension Insomnia Osteoarthritis Osteoporosis Surgical History Hx of tubal ligation Hx of hysterectomy Family History Father Heart attack Mother Cancer Social History Household Members: Children Household Members Other:: daughter and family Alcohol intake: never Patient Tobacco Use Status: Never used Tobacco Physical Exam Vital Signs: Last Vital Signs Pulse 70 06/30/23 07:58 BP 144/70 H 06/30/23 07:58 BMI result Body Mass Index 30.8 Assessment & Plan Assessment & Plan (1) Osteoporosis: Code(s): M81.0 - Age-related osteoporosis without current pathological fracture Plan: 61-year-old female with a history of osteoporosis treated with an oral bisphosphonate for 3 years time with improvement in bone density. She has never had a fragility fracture. She had a negative secondary workup .Urine NTX is pending At this point, would continue tohold the Risidronate. will followk urinary NTX If continues to remain suppressed, would hold off on giving pharmacologic therapy. Depending on repeat DEXA and urine NTX, may hold or reinitate bisphosphonate Orders: Orders XR DEXA axial skeleton 6 Months M81.0 - Age-related osteoporosis without current pathological fracture Coding Level of Care Code Est Pt Level 3 (05426) Diagnoses Osteoporosis M81.0
[2023-06-30 07:58] VITALS: BP 144/70; PULSE 70; BMI 30.8
== END 2023-06-30 08:21 | disposition home or self-care (01) ==
PROVIDERS: PCP Student in an Organized Health Care Education/Training Program; Visit Provider Internal Medicine Endocrinology, Diabetes & Metabolism
DX: M81.0 Age-related osteoporosis without current pathological fracture (principal)
CPT/HCPCS: 99213

== ENCOUNTER → 2023-06-30 07:44 | Outpatient (BNVA) | payer MEDICAID, SELFPAY | PROVIDERS: Visit Provider Internal Medicine Endocrinology, Diabetes & Metabolism | DX: M81.0 Age-related osteoporosis without current pathological fracture (principal) | CPT/HCPCS: 99212 ==

== ENCOUNTER 2023-09-03 11:51 | Outpatient (REF) | payer MEDICAID, SELFPAY ==
--- NOTE | ~2023-09-03 | CT_ITS ---
EXAMINATION: CT ABDOMEN AND PELVIS WITH CONTRAST CLINICAL INFORMATION: Pelvic fullness, mass or lump COMPARISON: Abdominal ultrasound June 2023 and pelvic ultrasound March 2021 TECHNIQUE: Multidetector volumetric images were obtained from the superior aspect of the liver through the pubic symphysis following administration 85 mL of Omnipaque 350 intravenous contrast. Sagittal and coronal reformatted images were obtained on the technologist's workstation. Oral contrast: Yes This CT examination was performed using dose optimization techniques as appropriate, variously including the following: *Automated exposure control *Adjustment of mA and/or kV according to patient size (this includes techniques or standardized protocols for targeted exams where dose is matched to indication/reason for exam; i.e. extremities or head) *Use of iterative reconstruction technique DLP: 449 mGy-cm FINDINGS: LUNG BASES: The visualized lung bases are unremarkable. LIVER, GALLBLADDER, AND BILIARY TREE: The liver is normal in size, shape, and attenuation. Small 8 mm cyst in the lateral segment of the left lobe of the liver. No other focal hepatic lesion or biliary ductal dilatation is present. The gallbladder is unremarkable with no evidence of radiopaque gallstones, gallbladder wall thickening, or obvious pericholecystic inflammatory changes. PANCREAS: Unremarkable. SPLEEN: Unremarkable. ADRENAL GLANDS: Unremarkable. KIDNEYS AND URETERS: The kidneys are normal in size, shape, and attenuation. No hydronephrosis, hydroureter, or calculi seen. No perinephric stranding. BLADDER: Unremarkable. GASTROINTESTINAL TRACT: constipation. The small and large bowel are otherwise unremarkable. The appendix is unremarkable. ABDOMINAL WALL: No significant hernia is appreciated. LYMPH NODES: Normal. VASCULAR: Unremarkable. PELVIC VISCERA: The uterus has been removed. OSSEOUS STRUCTURES: Degenerative changes of the spine. Question mild compression fracture versus Schmorl's node of the right superior endplate of the T12 vertebral body. CT/CT abdomen pelvis w IV con IMPRESSION: Constipation. No pelvic mass. Post hysterectomy. Small liver cyst. Fleischner guidelines were followed.
[2023-09-03] MEDS: iohexoL 350 MG/ML 100 ML INFUS..BTL 85 ML IV (10:49)
[2023-09-03] MEDS: Barium Sulfate Oral (Berry) 450 ML ORAL.SUSP 900 ML PO (10:49)
[2023-09-04 08:25] LABS: Creatinine POC 0.8 mg/dL (0.5-1.4); GFR POC > 60
== END 2023-09-03 11:52 | disposition home or self-care (01) ==
LOC: HO.CT 11:51
PROVIDERS: PCP Student in an Organized Health Care Education/Training Program; Visit Provider Student in an Organized Health Care Education/Training Program
DX: R19.00 Intra-abdominal and pelvic swelling, mass and lump, unspecified site (principal)
CPT/HCPCS: 74177; 82565; Q9967

== ENCOUNTER 2023-09-12 09:00 | Outpatient (REF) | payer MEDICAID, SELFPAY | END 2023-09-12 09:01 | disposition home or self-care (01) | LOC: HO.MAMMO 09:00 | PROVIDERS: PCP Student in an Organized Health Care Education/Training Program; Visit Provider Internal Medicine | DX: Z12.31 Encounter for screening mammogram for malignant neoplasm of breast (principal) | CPT/HCPCS: 77063; 77067 ==

== ENCOUNTER → 2023-09-12 10:00 | Outpatient (BNV) | payer MEDICAID, SELFPAY | PROVIDERS: PCP Student in an Organized Health Care Education/Training Program; Visit Provider Radiology Diagnostic Radiology | DX: Z12.31 Encounter for screening mammogram for malignant neoplasm of breast (principal) | CPT/HCPCS: 77063; 77067 ==

== ENCOUNTER 2023-10-22 07:40 | Outpatient (REF) | payer MEDICAID, SELFPAY ==
[2023-10-22 08:01] LABS: MANUAL DIFF FLAG NO
[2023-10-22 08:05] LABS: Basophils Percent Auto 0.7 % (0-2); Eosinophils Absolute Auto 0.1 X10*3/uL (0.0-0.4); Eosinophils Percent Auto 1.5 % (0-4); Hematocrit 35.5 % (37.0-47.0); Hemoglobin 11.7 g/dl (12.0-16.0); Imm Gran Abs Auto 0.02 X10*3/uL (0.00-0.03); Imm Gran Pct Auto 0.5 % (0.0-0.4); Lymphocytes Absolute Auto 1.6 X10*3/uL (1.2-4.9); Lymphocytes Percent Auto 37.7 % (20-40); Mean Corpuscular Hemoglobin 27.1 pg (27.0-33.0); Mean Corpuscular Volume 82.2 fL (80.0-98.0); Mean Platelet Volume 10.3 fL (9.4-12.3); Monocytes Absolute Auto 0.3 X10*3/uL (0.1-1.2); Monocytes Percent Auto 7.1 % (2-11); Neutrophils Absolute Auto 2.2 x10*3/uL (2.0-8.3); Neutrophils Percent Auto 52.5 % (45-73); Platelet Count 241 X10*3/uL (160-400); Red Blood Count 4.32 X10*6/uL (4.20-5.50); Red Cell Distribution Width 13.7 % (11.0-16.0); White Blood Count 4.1 X10*3/uL (4.8-10.8)
[2023-10-22 08:38] LABS: Alanine Aminotransferase 21 U/L (0-31); Albumin Level 4.2 g/dL (3.5-5.0); Alkaline Phosphatase 137 U/L (39-117); Anion Gap 12 (12-20); Aspartate Amino Transferase 19 U/L (5-31); Bilirubin Total 0.6 mg/dL (0.0-1.0); Blood Urea Nitrogen 10 mg/dL (9-16); Calcium 9.5 mg/dL (8.4-10.2); Carbon Dioxide 26 mmol/L (22-29); Chloride 108 mmol/L (96-108); Cholesterol 133 mg/dL (<200); Estimated Glomerular Filt Rate > 60; Glucose Random 97 mg/dL (60-115); HDL Cholesterol 44 mg/dL (>40); LDL Cholesterol Calculated 67 mg/dL (<100); Potassium 3.6 mmol/L (3.3-5.1); Sodium 142 mmol/L (135-145); Total Protein 6.8 g/dL (6.5-8.0); Triglycerides 113 mg/dL (<150)
[2023-10-22 11:48] LABS: Iron 89 mcg/dL (30-160); Percent Iron Saturation 33 % (15-50); Total Iron Binding Capacity 270 mcg/dL (228-428); Unsaturated Iron Binding 181 ug/dL
[2023-10-22 12:05] LABS: Ferritin 110 ng/mL (10-250)
== END 2023-10-22 07:41 | disposition home or self-care (01) ==
LOC: HO.10HDL 07:40
PROVIDERS: Visit Provider Student in an Organized Health Care Education/Training Program
DX: I10 Essential (primary) hypertension (principal)
CPT/HCPCS: 36415; 80053; 80061; 82728; 83540; 85025